=== PATIENT | female | born 1960 | race American Indian/Alaskan Native ===

== ENCOUNTER 2020-05-01 19:37 | Emergency (ER) | payer BC ==
[~2020-05-01] VITALS: Ht 165.1 cm; Wt 61.7 kg
[2020-05-01 19:42] VITALS: Ht 165.1 cm; Wt 61.7 kg
[2020-05-01 21:04] VITALS: BP 89/50
== END 2020-05-01 21:04 | disposition home or self-care (01) ==
LOC: ED 19:37
DX: S82.62XA Displaced fracture of lateral malleolus of left fibula, initial encounter for closed fracture (principal); I10 Essential (primary) hypertension; Z88.2 Allergy status to sulfonamides; X50.1XXA Overexertion from prolonged static or awkward postures, initial encounter; Y93.89 Activity, other specified; Y92.89 Other specified places as the place of occurrence of the external cause; Y99.8 Other external cause status